=== PATIENT | female | born 1995 | race Caucasian/White ===

== ENCOUNTER 2017-09-29 20:40 | Emergency (ER) | payer OTHER ==
[~2017-09-29] VITALS: Ht 160 cm; Wt 64.9 kg
[~2017-09-29 20:40] MED LIST: ANTOXYBENA BOTHEARS; Flagyl500 MG PO; HYDHCL25 PO; IBUP800 PO; Macrobid 100 M100 MG PO; ONDA4 PO; PRENATA CHEWAB1 EACH PO; PROM25 PO; Percocet 5-3251 EACH PO; Trimox 250 mg250 M1 PO; Verotin-Gr Cap1 EACH PO; Zofran Odt4 MG SL
[2017-09-29] MEDS ORDERED: Norco 5-325 Ta1 EACH PO (21:49)
[2017-09-29] MEDS ORDERED: Crutch1 EACH MISC (21:51)
== END 2017-09-29 22:00 | disposition home or self-care (01) ==
LOC: ER 20:40
DX: S93.402A Sprain of unspecified ligament of left ankle, initial encounter (principal); F17.200 Nicotine dependence, unspecified, uncomplicated; Z91.040 Latex allergy status; W10.9XXA Fall (on) (from) unspecified stairs and steps, initial encounter
CPT/HCPCS: 29515; 73610; 73630; 99283

== ENCOUNTER 2017-11-18 17:46 | Emergency (ER) | payer OTHER ==
[~2017-11-18] VITALS: Ht 162.6 cm; Wt 65.8 kg
[~2017-11-18 17:46] MED LIST changes: +Crutch1 EACH MISC; +Norco 5-325 Ta1 EACH PO
== END 2017-11-18 20:10 | disposition home or self-care (01) ==
LOC: ER 17:46
DX: M25.561 Pain in right knee (principal); Z91.040 Latex allergy status; Z87.891 Personal history of nicotine dependence; W10.9XXA Fall (on) (from) unspecified stairs and steps, initial encounter
CPT/HCPCS: 73564; 99283

== ENCOUNTER 2017-12-25 14:33 | Emergency (ER) | payer OTHER ==
[~2017-12-25] VITALS: Ht 162.6 cm; Wt 63.5 kg
[~2017-12-25 14:33] MED LIST changes: +Advil200 M1
[2017-12-25 15:25] LABS: BASOPHILS ABSOLUTE AUTO 0.04 K/mm3 (0.00-0.23); BASOPHILS PERCENT AUTO 0 % (0-2); EOSINOPHILS ABSOLUTE AUTO 0.02 K/mm3 (0.00-0.68); EOSINOPHILS PERCENT AUTO 0 % (0-6); Hematocrit 39.5 % (33.0-51.0); Hemoglobin 12.9 g/dL (11.5-16.0); IMMATURE GRAN ABSOLUTE AUTO 0.07 K/mm3 (0.00-0.10); IMMATURE GRAN PERCENT AUTO 0 % (0-1); LYMPHOCYTES ABSOLUTE AUTO 1.66 K/mm3 (0.84-5.20); LYMPHOCYTES PERCENT AUTO 9 % (21-46); MONOCYTES ABSOLUTE AUTO 0.71 K/mm3 (0.16-1.47); MONOCYTES PERCENT AUTO 4 % (4-13); Mean Corpuscular HGB 25.2 pg (26.0-34.0); Mean Corpuscular HGB Conc 32.7 g/dL (31.5-36.5); Mean Corpuscular Volume 77 fL (80-100); Mean Platelet Volume 11.8 fL (9.1-12.4); NEUTROPHILS ABSOLUTE AUTO 15.27 K/mm3 (1.96-9.15); NEUTROPHILS PERCENT AUTO 86 % (41-73); Platelet Count 275 K/mm3 (150-400); RDW Coefficient Variation 14.5 % (11.7-14.2); RDW Standard Deviation 39.9 fL (35.1-46.3); Red Blood Cell Count 5.12 M/mm3 (3.80-5.20); White Blood Cell Count 17.77 K/mm3 (4.00-11.30)
[2017-12-25 15:54] LABS: Anion Gap 9 mmol/L (6-16); Blood Urea Nitrogen 11 mg/dL (8-24); Bun/Creatinine Ratio 16.2 (12.0-20.0); CO2, Blood 21 mmol/L (21-32); Calcium, Blood 8.4 mg/dL (8.5-10.1); Chloride, Blood 110 mmol/L (98-108); Creatinine, Blood 0.68 mg/dL (0.40-1.00); Glomerular Filtration Rate >60 (60-); Glucose, Blood 112 mg/dL (70-99); Potassium, Blood 3.9 mmol/L (3.5-5.5); Sodium, Blood 140 mmol/L (136-145)
[2017-12-25 16:24] LABS: Source, Urine Clean Catch
[2017-12-25 16:32] LABS: Bilirubin, Urine Neg (Neg); Blood, Urine Neg (Neg); Glucose Qualitative, Urine Neg (Neg); Ketones, Urine 2+ (Neg); Leukocyte Esterase, Urine Neg (Neg); Nitrite, Urine Neg (Neg); Protein, Urine Neg (Neg); Specific Gravity, Urine 1.015 (1.003-1.022); Urobilinogen, Urine NORM (Normal)
[2017-12-25 16:40] LABS: Appearance, Urine Clear (Clear); Color, Urine Yellow (P-Yellow)
[2017-12-25] MEDS ORDERED: Augmentin 875-1 EACH PO (19:51)
[2017-12-25] MEDS ORDERED: Roxicodone5 MG PO (19:51)
[2017-12-25] MEDS ORDERED: METO10 PO (19:51)
== END 2017-12-25 20:05 | disposition home or self-care (01) ==
LOC: ER 14:33
PROVIDERS: Emergency Medicine
DX: R51 Headache (principal); Z91.040 Latex allergy status; Z79.899 Other long term (current) drug therapy; Z87.891 Personal history of nicotine dependence
CPT/HCPCS: 36415; 70450; 70496; 70498; 80048; 81003; 84703; 85025; 96361; 96374; 96375; 99284-25; J1100; J1200; J1630; J1885; J2405; J2765; J3010; J7030; Q9967

== ENCOUNTER 2017-12-27 06:22 | Day surgery (SDC) | payer OTHER ==
[~2017-12-27] VITALS: Ht 160 cm; Wt 66.7 kg
[~2017-12-27 06:22] MED LIST changes: +Augmentin 875-1 EACH PO; +METO10 PO; +Roxicodone5 MG PO
== END 2017-12-27 12:00 | disposition home or self-care (01) ==
LOC: ORSCSDS 06:22
PROVIDERS: Podiatrist Foot & Ankle Surgery
PROC: 0SGG44Z Fusion of Left Ankle Joint with Internal Fixation Device, Percutaneous Endoscopic Approach (ICD-10-PCS; principal; 2017-12-27 07:30)
PROC: 0SBG4ZZ Excision of Left Ankle Joint, Percutaneous Endoscopic Approach (ICD-10-PCS; principal; 2017-12-27 07:30)
DX: M25.372 Other instability, left ankle (principal); M65.9 Synovitis and tenosynovitis, unspecified; S93.492D Sprain of other ligament of left ankle, subsequent encounter
CPT/HCPCS: C1713; J0171; J0690; J1100; J2250; J2405; J3010; J7120

== ENCOUNTER 2017-12-31 21:25 | Emergency (ER) | payer OTHER ==
[~2017-12-31] VITALS: Ht 160 cm; Wt 63.5 kg
== END 2017-12-31 22:45 | disposition home or self-care (01) ==
LOC: ER 21:25
DX: Z47.89 Encounter for other orthopedic aftercare (principal); M65.9 Synovitis and tenosynovitis, unspecified; Z91.040 Latex allergy status
CPT/HCPCS: 99283

== ENCOUNTER 2018-01-17 00:24 | Emergency (ER) | payer OTHER ==
[~2018-01-17] VITALS: Ht 162.6 cm; Wt 63.5 kg
[2018-01-17] MEDS ORDERED: HYDR1TAB94 PO (00:52)
== END 2018-01-17 01:07 | disposition home or self-care (01) ==
LOC: ER 00:24
DX: Z47.89 Encounter for other orthopedic aftercare (principal); M65.9 Synovitis and tenosynovitis, unspecified; Z91.040 Latex allergy status
CPT/HCPCS: 99283

== ENCOUNTER 2018-03-09 22:43 | Emergency (ER) | payer OTHER ==
[~2018-03-09] VITALS: Ht 160 cm; Wt 63.5 kg
[~2018-03-09 22:43] MED LIST changes: +HYDR1TAB94 PO
[2018-03-09 23:41] LABS: BASOPHILS ABSOLUTE AUTO 0.05 K/mm3 (0.00-0.23); BASOPHILS PERCENT AUTO 0 % (0-2); EOSINOPHILS ABSOLUTE AUTO 0.04 K/mm3 (0.00-0.68); EOSINOPHILS PERCENT AUTO 0 % (0-6); Hematocrit 41.2 % (33.0-51.0); Hemoglobin 13.3 g/dL (11.5-16.0); IMMATURE GRAN ABSOLUTE AUTO 0.04 K/mm3 (0.00-0.10); IMMATURE GRAN PERCENT AUTO 0 % (0-1); LYMPHOCYTES ABSOLUTE AUTO 2.96 K/mm3 (0.84-5.20); LYMPHOCYTES PERCENT AUTO 21 % (21-46); MONOCYTES PERCENT AUTO 7 % (4-13); Mean Corpuscular HGB 25.6 pg (26.0-34.0); Mean Corpuscular HGB Conc 32.3 g/dL (31.5-36.5); Mean Corpuscular Volume 79 fL (80-100); Mean Platelet Volume 12.3 fL (9.1-12.4); NEUTROPHILS ABSOLUTE AUTO 10.14 K/mm3 (1.96-9.15); NEUTROPHILS PERCENT AUTO 71 % (41-73); Platelet Count 210 K/mm3 (150-400); RDW Coefficient Variation 13.2 % (11.7-14.2); RDW Standard Deviation 38.1 fL (35.1-46.3); White Blood Cell Count 14.23 K/mm3 (4.00-11.30)
[2018-03-09 23:55] LABS: Source, Urine Clean Catch
[2018-03-10] LABS: Alanine Aminotransfer (ALT/SGP 18 U/L (12-78); Albumin, Blood 3.9 g/dL (3.4-5.0); Alk Phos 54 U/L (50-136); Anion Gap 8 mmol/L (6-16); Aspartate Aminotrans (AST/SGOT 17 U/L (12-37); Bilirubin, Total 0.5 mg/dL (0.1-1.0); Blood Urea Nitrogen 9 mg/dL (8-24); CO2, Blood 23 mmol/L (21-32); Calcium, Blood 8.6 mg/dL (8.5-10.1); Chloride, Blood 109 mmol/L (98-108); Globulin, Blood 3.8 g/dL (2.2-4.0); Glomerular Filtration Rate >60 (60-); Glucose, Blood 90 mg/dL (70-99); Salicylate <1.7 mg/dL (2.8-20.0); Sodium, Blood 140 mmol/L (136-145); Total Protein, Blood 7.7 g/dL (6.4-8.2)
[2018-03-10 00:02] LABS: Bilirubin, Urine Neg (Neg); Blood, Urine Neg (Neg); Glucose Qualitative, Urine Neg (Neg); Ketones, Urine 1+ (Neg); Leukocyte Esterase, Urine Neg (Neg); Nitrite, Urine Neg (Neg); Protein, Urine Neg (Neg); Specific Gravity, Urine 1.015 (1.003-1.022); Urobilinogen, Urine NORM (Normal); pH, Urine 6.5 (5.0-8.0)
[2018-03-10 00:06] LABS: Acetaminophen, Random <2.0 ug/mL (10.0-30.0)
[2018-03-10 00:06] LABS: Appearance, Urine Clear (Clear); Color, Urine Yellow (P-Yellow)
[2018-03-10 00:15] LABS: U Amphetamine Screen Not Detected; U Barbituate Screen Not Detected; U Benzodiazapine Screen Not Detected; U Buprenorphine Screen Not Detected; U Cannabinoids Screen Not Detected; U Cocaine Screen Not Detected; U Methadone Screen Not Detected; U Methamphetamine Screen Not Detected; U Opiates Screen Not Detected; U Oxycodone Screen Not Detected; U Phencyclidine Screen Not Detected; U Propoxyphene Screen Not Detected
== END 2018-03-10 02:03 | disposition home or self-care (01) ==
LOC: ER 22:43
PROVIDERS: Emergency Medicine
DX: R51 Headache (principal); Z91.040 Latex allergy status
CPT/HCPCS: 80053; 81003; 81025; 83735; 84443; 85025; 96361; 96374; 96375; 99284-25; G0480; J1100; J1200; J1885; J2060; J2765; J7030

== ENCOUNTER 2018-03-10 23:21 | Emergency (ER) | payer OTHER ==
[~2018-03-10] VITALS: Ht 160 cm; Wt 59.0 kg
[2018-03-10 23:45] LABS: Calcium, Ionized (POC) 1.11 mmol/L (1.10-1.46); Chloride (POC) 109 mmol/L (98-108); Creatinine (POC) 0.8 mg/dL (0.6-1.0); Glucose (ISTAT POC) 106 mg/dL (70-99); Hemoglobin (POC) 12.6 g/dL (12.0-16.0); Potassium (POC) 3.3 mmol/L (3.5-5.5); Sodium (POC) 143 mmol/L (135-148); Total CO2 (POC) 20 mmol/L (21-32)
== END 2018-03-11 01:01 | disposition home or self-care (01) ==
LOC: ER 23:21
PROVIDERS: Emergency Medicine
DX: R29.90 Unspecified symptoms and signs involving the nervous system (principal); Z91.040 Latex allergy status
CPT/HCPCS: 80047; 85014; 99284

== ENCOUNTER 2018-08-22 14:44 | Emergency (ER) | payer OTHER ==
[~2018-08-22] VITALS: Ht 160 cm; Wt 63.5 kg
[~2018-08-22 14:44] MED LIST changes: +CEPH500 PO; +IBUP600 PO; +Zofran Odt4 MG PO
[2018-08-22 17:17] LABS: Source, Urine Clean Catch
[2018-08-22 17:18] LABS: BASOPHILS ABSOLUTE AUTO 0.03 K/mm3 (0.00-0.23); BASOPHILS PERCENT AUTO 0 % (0-2); EOSINOPHILS ABSOLUTE AUTO 0.02 K/mm3 (0.00-0.68); EOSINOPHILS PERCENT AUTO 0 % (0-6); Hematocrit 39.6 % (33.0-51.0); Hemoglobin 12.7 g/dL (11.5-16.0); IMMATURE GRAN ABSOLUTE AUTO 0.03 K/mm3 (0.00-0.10); IMMATURE GRAN PERCENT AUTO 0 % (0-1); LYMPHOCYTES ABSOLUTE AUTO 2.05 K/mm3 (0.84-5.20); LYMPHOCYTES PERCENT AUTO 19 % (21-46); MONOCYTES ABSOLUTE AUTO 0.79 K/mm3 (0.16-1.47); MONOCYTES PERCENT AUTO 7 % (4-13); Mean Corpuscular HGB 25.7 pg (26.0-34.0); Mean Corpuscular HGB Conc 32.1 g/dL (31.5-36.5); Mean Corpuscular Volume 80 fL (80-100); Mean Platelet Volume 12.1 fL (9.1-12.4); NEUTROPHILS ABSOLUTE AUTO 7.94 K/mm3 (1.96-9.15); NEUTROPHILS PERCENT AUTO 73 % (41-73); Platelet Count 226 K/mm3 (150-400); RDW Coefficient Variation 13.9 % (11.7-14.2); RDW Standard Deviation 40.8 fL (35.1-46.3); Red Blood Cell Count 4.95 M/mm3 (3.80-5.20); White Blood Cell Count 10.86 K/mm3 (4.00-11.30)
[2018-08-22 17:30] LABS: Appearance, Urine Hazy (Clear); Bilirubin, Urine Neg (Neg); Blood, Urine 5+ (Neg); Color, Urine Yellow (P-Yellow); Glucose Qualitative, Urine Neg (Neg); Ketones, Urine 1+ (Neg); Leukocyte Esterase, Urine Neg (Neg); Nitrite, Urine Neg (Neg); Protein, Urine Neg (Neg); Specific Gravity, Urine 1.015 (1.003-1.022); Urobilinogen, Urine NORM (Normal)
[2018-08-22 17:36] LABS: Alanine Aminotransfer (ALT/SGP 15 U/L (12-78); Albumin/Globulin Ratio 1.2 (0.8-1.8); Alk Phos 45 U/L (50-136); Anion Gap 7 mmol/L (6-16); Aspartate Aminotrans (AST/SGOT 11 U/L (12-37); Beta HCG, Quantitative, Serum 177 mIU/mL (0-3); Bilirubin, Total 0.5 mg/dL (0.1-1.0); Blood Urea Nitrogen 10 mg/dL (8-24); Bun/Creatinine Ratio 12.5 (12.0-20.0); CO2, Blood 24 mmol/L (21-32); Calcium, Blood 8.6 mg/dL (8.5-10.1); Chloride, Blood 108 mmol/L (98-108); Globulin, Blood 3.4 g/dL (2.2-4.0); Glomerular Filtration Rate >60 (60-); Glucose, Blood 90 mg/dL (70-99); Potassium, Blood 3.8 mmol/L (3.5-5.5); Sodium, Blood 139 mmol/L (136-145); Total Protein, Blood 7.4 g/dL (6.4-8.2)
[2018-08-22 17:39] LABS: Squamous Epithelial Cells Many /hpf (Few)
[2018-08-22 17:40] LABS: Bacteria Few /hpf; Red Blood Cells, Urine Not Seen /hpf (0-2); White Blood Cells, Urine 0-2 /hpf (0-5)
== END 2018-08-22 20:48 | disposition home or self-care (01) ==
LOC: ER 14:44
PROVIDERS: Physician Assistant
DX: O20.9 Hemorrhage in early pregnancy, unspecified (principal); Z3A.01 Less than 8 weeks gestation of pregnancy; Z91.040 Latex allergy status
CPT/HCPCS: 36415; 76801; 76817; 80053; 81001; 84702; 85025; 99284-25

== ENCOUNTER → 2018-10-16 | Outpatient (CLI) | payer OTHER | END | disposition home or self-care (01) | LOC: LAB SHORT 16:27 → LAB EV 16:27 | DX: N12 Tubulo-interstitial nephritis, not specified as acute or chronic (principal) | CPT/HCPCS: 87077; 87086; 87186 ==

== ENCOUNTER 2018-11-05 09:22 | Day surgery (SDC) | payer OTHER ==
[2018-11-04 18:04] LABS: Hemoglobin 13.2 g/dL (11.5-16.0); Mean Corpuscular HGB 26.2 pg (26.0-34.0); Mean Corpuscular HGB Conc 32.2 g/dL (31.5-36.5); Mean Corpuscular Volume 81 fL (80-100); Mean Platelet Volume 12.2 fL (9.1-12.4); Platelet Count 237 K/mm3 (150-400); RDW Coefficient Variation 13.7 % (11.7-14.2); RDW Standard Deviation 40.5 fL (35.1-46.3); Red Blood Cell Count 5.04 M/mm3 (3.80-5.20); White Blood Cell Count 10.46 K/mm3 (4.00-11.30)
[~2018-11-05] VITALS: Ht 160 cm; Wt 62.9 kg
--- NOTE | 2018-11-05 10:00 | NUR ---
Ambulatory in Day Surgery. History, Chart, Medications and Allergies reviewed before start of procedure. Lungs clear T/O to Auscultation. Patient confirms NPO status and agrees with scheduled surgery. Pre-Op teaching done. Pt verbalizes understanding. Patient States Post-Procedure ride home has been arranged. Mother, Libby, at bedside as well as her two children.
--- NOTE | 2018-11-05 13:48 | NUR ---
Patient up to Ambulate independently. Gait steady. Discharge instructions reviewed with patient. Patient verbalizes understanding. Copy given to patient to take home. Patient States Post-Procedure ride home has been arranged. Discharged via wheelchair to private car for ride home. Mother and children at bedside. Pt up to bathroom prior to discharge. Scant drainage on palak-pad, approx 15 cc's on chux. Fresh palak-pad given, displayed only smear at time of discharge. Pt awake, alert, and oriented at time of discharge. She had trouble with nausea and did not want to take any pain medication until her stomach settled. She is going to try to eat something on her way home and take an ibuprofen.
== END 2018-11-05 23:04 | disposition home or self-care (01) ==
LOC: ORSCMMR 09:22 → ORD 10:30 → ORSCMMR 23:04
PROVIDERS: Obstetrics & Gynecology
PROC: 10A07Z6 Abortion of Products of Conception, Vacuum, Via Natural or Artificial Opening (ICD-10-PCS; principal; 2018-11-05 10:30)
DX: O03.39 Incomplete spontaneous abortion with other complications (principal)
CPT/HCPCS: 36415; 84702; 85027; 86850; 86900; 86901; 88305; J0690; J1885; J2210; J2250; J2405; J2704; J3010; J7120

== ENCOUNTER 2019-09-28 13:59 | Emergency (ER) | payer OTHER ==
[~2019-09-28] VITALS: Ht 160 cm; Wt 61.2 kg
[2019-09-28] MEDS ORDERED: Robaxin-750750 MG PO (16:51)
== END 2019-09-28 17:16 | disposition home or self-care (01) ==
LOC: ER 13:59
DX: S79.911A Unspecified injury of right hip, initial encounter (principal); S99.911A Unspecified injury of right ankle, initial encounter; S49.91XA Unspecified injury of right shoulder and upper arm, initial encounter; Z91.040 Latex allergy status; W01.0XXA Fall on same level from slipping, tripping and stumbling without subsequent striking against object, initial encounter
CPT/HCPCS: 73080; 73110; 73502; 73610; 99283-25

== ENCOUNTER 2020-03-19 19:38 | Emergency (ER) | payer OTHER ==
[~2020-03-19] VITALS: Ht 160 cm; Wt 65.8 kg
[~2020-03-19 19:38] MED LIST changes: +Robaxin-750750 MG PO
[2020-03-19 20:22] LABS: BASOPHILS ABSOLUTE AUTO 0.04 K/mm3 (0.00-0.23); BASOPHILS PERCENT AUTO 0 % (0-2); EOSINOPHILS ABSOLUTE AUTO 0.07 K/mm3 (0.00-0.68); EOSINOPHILS PERCENT AUTO 1 % (0-6); Hematocrit 43.7 % (33.0-51.0); Hemoglobin 13.9 g/dL (11.5-16.0); IMMATURE GRAN ABSOLUTE AUTO 0.01 K/mm3 (0.00-0.10); IMMATURE GRAN PERCENT AUTO 0 % (0-1); LYMPHOCYTES ABSOLUTE AUTO 2.22 K/mm3 (0.84-5.20); LYMPHOCYTES PERCENT AUTO 25 % (21-46); MONOCYTES ABSOLUTE AUTO 0.69 K/mm3 (0.16-1.47); MONOCYTES PERCENT AUTO 8 % (4-13); Mean Corpuscular HGB 25.4 pg (26.0-34.0); Mean Corpuscular HGB Conc 31.8 g/dL (31.5-36.5); Mean Corpuscular Volume 80 fL (80-100); Mean Platelet Volume 12.5 fL (9.1-12.4); NEUTROPHILS ABSOLUTE AUTO 5.92 K/mm3 (1.96-9.15); NEUTROPHILS PERCENT AUTO 66 % (41-73); Platelet Count 234 K/mm3 (150-400); RDW Coefficient Variation 13.8 % (11.7-14.2); RDW Standard Deviation 40.3 fL (35.1-46.3); Red Blood Cell Count 5.47 M/mm3 (3.80-5.20); White Blood Cell Count 8.95 K/mm3 (4.00-11.30)
[2020-03-19 20:45] LABS: Alanine Aminotransfer (ALT/SGP 15 U/L (12-78); Albumin, Blood 3.7 g/dL (3.4-5.0); Albumin/Globulin Ratio 0.9 (0.8-1.8); Alk Phos 50 U/L (50-136); Anion Gap 7 mmol/L (6-16); Aspartate Aminotrans (AST/SGOT 24 U/L (12-37); Bilirubin, Total 0.3 mg/dL (0.1-1.0); Blood Urea Nitrogen 10 mg/dL (8-24); Bun/Creatinine Ratio 12.1 (12.0-20.0); CO2, Blood 24 mmol/L (21-32); Calcium, Blood 8.5 mg/dL (8.5-10.1); Chloride, Blood 110 mmol/L (98-108); Creatinine, Blood 0.83 mg/dL (0.40-1.00); Globulin, Blood 3.9 g/dL (2.2-4.0); Glomerular Filtration Rate >60 (60-); Glucose, Blood 110 mg/dL (70-99); Potassium, Blood 4.3 mmol/L (3.5-5.5); Sodium, Blood 141 mmol/L (136-145); Total Protein, Blood 7.6 g/dL (6.4-8.2)
[2020-03-19 20:57] LABS: Beta HCG, Quantitative, Serum 1166 mIU/mL (0-3)
== END 2020-03-20 00:55 | disposition home or self-care (01) ==
LOC: ER 19:38
PROVIDERS: Physician Assistant
DX: O20.0 Threatened abortion (principal); F32.9 Major depressive disorder, single episode, unspecified; F41.9 Anxiety disorder, unspecified; Z3A.01 Less than 8 weeks gestation of pregnancy; Z88.6 Allergy status to analgesic agent; Z91.040 Latex allergy status
CPT/HCPCS: 36415; 76801; 76817; 80053; 84702; 85025; 86900; 86901; 96372; 99284-25; J2791; J7030

== ENCOUNTER 2020-08-01 13:40 | Emergency (ER) | payer OTHER ==
[~2020-08-01] VITALS: Ht 160 cm; Wt 65.8 kg
[2020-08-01 14:13] LABS: BASOPHILS ABSOLUTE AUTO 0.04 K/mm3 (0.00-0.23); BASOPHILS PERCENT AUTO 0 % (0-2); EOSINOPHILS PERCENT AUTO 1 % (0-6); Hematocrit 42.6 % (33.0-51.0); Hemoglobin 14.2 g/dL (11.5-16.0); IMMATURE GRAN ABSOLUTE AUTO 0.03 K/mm3 (0.00-0.10); IMMATURE GRAN PERCENT AUTO 0 % (0-1); LYMPHOCYTES ABSOLUTE AUTO 2.33 K/mm3 (0.84-5.20); LYMPHOCYTES PERCENT AUTO 20 % (21-46); MONOCYTES ABSOLUTE AUTO 0.64 K/mm3 (0.16-1.47); MONOCYTES PERCENT AUTO 5 % (4-13); Mean Corpuscular HGB 25.4 pg (26.0-34.0); Mean Corpuscular HGB Conc 33.3 g/dL (31.5-36.5); Mean Corpuscular Volume 76 fL (80-100); Mean Platelet Volume 11.9 fL (9.1-12.4); NEUTROPHILS ABSOLUTE AUTO 8.81 K/mm3 (1.96-9.15); NEUTROPHILS PERCENT AUTO 74 % (41-73); Platelet Count 188 K/mm3 (150-400); RDW Coefficient Variation 14.4 % (11.7-14.2); RDW Standard Deviation 39.2 fL (35.1-46.3); Red Blood Cell Count 5.59 M/mm3 (3.80-5.20); White Blood Cell Count 11.95 K/mm3 (4.00-11.30)
[2020-08-01 14:41] LABS: Alanine Aminotransfer (ALT/SGP 20 U/L (12-78); Albumin, Blood 3.8 g/dL (3.4-5.0); Albumin/Globulin Ratio 0.9 (0.8-1.8); Alk Phos 48 U/L (50-136); Anion Gap 11 mmol/L (6-16); Aspartate Aminotrans (AST/SGOT 16 U/L (12-37); Bilirubin, Total 0.2 mg/dL (0.1-1.0); Blood Urea Nitrogen 12 mg/dL (8-24); Bun/Creatinine Ratio 12.4 (12.0-20.0); CO2, Blood 21 mmol/L (21-32); Calcium, Blood 9.7 mg/dL (8.5-10.1); Chloride, Blood 107 mmol/L (98-108); Creatinine, Blood 0.97 mg/dL (0.40-1.00); Globulin, Blood 4.3 g/dL (2.2-4.0); Glomerular Filtration Rate >60 (60-); Glucose, Blood 117 mg/dL (70-99); Potassium, Blood 3.8 mmol/L (3.5-5.5); Sodium, Blood 139 mmol/L (136-145); Total Protein, Blood 8.1 g/dL (6.4-8.2)
[2020-08-01] MEDS ORDERED: EPIPEN 2-P0.3 MG/0.1 IM (17:30)
== END 2020-08-01 18:00 | disposition home or self-care (01) ==
LOC: ER 13:40
PROVIDERS: Physician Assistant
DX: T78.09XA Anaphylactic reaction due to other food products, initial encounter (principal)
CPT/HCPCS: 36415; 71046; 80053; 85025; 93005; 93010; 96372-59; 96374; 96375; 99285-25; A9270; J0171; J1200; J2930

== ENCOUNTER 2020-08-27 15:45 | Emergency (ER) | payer OTHER ==
[~2020-08-27] VITALS: Ht 160 cm; Wt 65.8 kg
[~2020-08-27 15:45] MED LIST changes: +EPIPEN 2-P0.3 MG/0.1 IM
[2020-08-27 16:50] LABS: BASOPHILS ABSOLUTE AUTO 0.04 K/mm3 (0.00-0.23); BASOPHILS PERCENT AUTO 0 % (0-2); EOSINOPHILS ABSOLUTE AUTO 0.08 K/mm3 (0.00-0.68); EOSINOPHILS PERCENT AUTO 1 % (0-6); Hematocrit 40.8 % (33.0-51.0); Hemoglobin 13.1 g/dL (11.5-16.0); IMMATURE GRAN ABSOLUTE AUTO 0.03 K/mm3 (0.00-0.10); IMMATURE GRAN PERCENT AUTO 0 % (0-1); LYMPHOCYTES ABSOLUTE AUTO 1.92 K/mm3 (0.84-5.20); LYMPHOCYTES PERCENT AUTO 20 % (21-46); MONOCYTES ABSOLUTE AUTO 0.96 K/mm3 (0.16-1.47); MONOCYTES PERCENT AUTO 10 % (4-13); Mean Corpuscular HGB 25.6 pg (26.0-34.0); Mean Corpuscular HGB Conc 32.1 g/dL (31.5-36.5); Mean Corpuscular Volume 80 fL (80-100); Mean Platelet Volume 12.2 fL (9.1-12.4); NEUTROPHILS PERCENT AUTO 69 % (41-73); Platelet Count 181 K/mm3 (150-400); RDW Coefficient Variation 13.9 % (11.7-14.2); RDW Standard Deviation 40.4 fL (35.1-46.3); Red Blood Cell Count 5.12 M/mm3 (3.80-5.20); White Blood Cell Count 9.83 K/mm3 (4.00-11.30)
[2020-08-27 17:12] LABS: Alanine Aminotransfer (ALT/SGP 16 U/L (12-78); Albumin, Blood 3.5 g/dL (3.4-5.0); Albumin/Globulin Ratio 0.9 (0.8-1.8); Alk Phos 51 U/L (50-136); Anion Gap 8 mmol/L (6-16); Aspartate Aminotrans (AST/SGOT 10 U/L (12-37); Bilirubin, Total 0.2 mg/dL (0.1-1.0); Blood Urea Nitrogen 9 mg/dL (8-24); Bun/Creatinine Ratio 11.3 (12.0-20.0); CO2, Blood 22 mmol/L (21-32); Calcium, Blood 8.1 mg/dL (8.5-10.1); Chloride, Blood 111 mmol/L (98-108); Globulin, Blood 3.7 g/dL (2.2-4.0); Glomerular Filtration Rate >60 (60-); Glucose, Blood 82 mg/dL (70-99); Potassium, Blood 3.5 mmol/L (3.5-5.5); Sodium, Blood 141 mmol/L (136-145); Total Protein, Blood 7.2 g/dL (6.4-8.2)
[2020-08-27 17:31] LABS: Source, Urine Clean Catch
[2020-08-27 17:39] LABS: Appearance, Urine Clear (Clear); Bilirubin, Urine Neg (Neg); Blood, Urine Neg (Neg); Color, Urine Yellow (P-Yellow); Glucose Qualitative, Urine Neg (Neg); Ketones, Urine 1+ (Neg); Leukocyte Esterase, Urine Neg (Neg); Nitrite, Urine Neg (Neg); Protein, Urine Neg (Neg); Urobilinogen, Urine NORM (Normal)
[2020-08-27] MEDS ORDERED: ONDA4ODT MM (19:23)
== END 2020-08-27 19:24 | disposition home or self-care (01) ==
LOC: ER 15:45
PROVIDERS: Physician Assistant
DX: N83.201 Unspecified ovarian cyst, right side (principal); Z88.6 Allergy status to analgesic agent; Z91.040 Latex allergy status
CPT/HCPCS: 36415; 74177; 76830; 76856; 80053; 81003; 81025; 85025; 96374; 96375; 96376; 99284-25; J2270; J2405; J7030; Q9967

== ENCOUNTER 2022-05-04 12:40 | Emergency (ER) | payer OTHER ==
[~2022-05-04] VITALS: Ht 160 cm; Wt 65.8 kg
[~2022-05-04 12:40] MED LIST changes: +ONDA4ODT MM
== END 2022-05-04 17:34 | disposition home or self-care (01) ==
LOC: ER 12:40
DX: G43.509 Persistent migraine aura without cerebral infarction, not intractable, without status migrainosus (principal); Z88.8 Allergy status to other drugs, medicaments and biological substances; Z91.040 Latex allergy status
CPT/HCPCS: 70450; A9270; J1100; J1200; J1790; J2765; J7030

== ENCOUNTER 2022-05-05 20:58 | Emergency (ER) | payer OTHER | END 2022-05-05 23:35 | disposition home or self-care (01) | DX: M62.838 Other muscle spasm (principal); R25.1 Tremor, unspecified; S93.409A Sprain of unspecified ligament of unspecified ankle, initial encounter; X58.XXXA Exposure to other specified factors, initial encounter; Z88.8 Allergy status to other drugs, medicaments and biological substances; Z91.040 Latex allergy status ==

== ENCOUNTER 2023-02-21 19:11 | Emergency (ER) | payer OTHER ==
[~2023-02-21] VITALS: Ht 160 cm; Wt 72.6 kg
[2023-02-21 20:10] VITALS: BP 149/92
[2023-02-21 20:38] LABS: Source, Urine Clean Catch
[2023-02-21 20:42] LABS: Appearance, Urine Hazy (Clear); Bilirubin, Urine Neg (Neg); Blood, Urine Neg (Neg); Color, Urine Yellow (P-Yellow); Glucose Qualitative, Urine Neg (Neg); Ketones, Urine Neg (Neg); Leukocyte Esterase, Urine 3+ (Neg); Nitrite, Urine Neg (Neg); Protein, Urine Neg (Neg); Urobilinogen, Urine NORM (Normal); pH, Urine 6.5 (5.0-8.0)
[2023-02-21 20:46] LABS: BASOPHILS ABSOLUTE AUTO 0.03 K/mm3 (0.00-0.23); BASOPHILS PERCENT AUTO 0 % (0-2); EOSINOPHILS ABSOLUTE AUTO 0.08 K/mm3 (0.00-0.68); EOSINOPHILS PERCENT AUTO 1 % (0-6); Hematocrit 38.1 % (33.0-51.0); Hemoglobin 12.7 g/dL (11.5-16.0); IMMATURE GRAN ABSOLUTE AUTO 0.04 K/mm3 (0.00-0.10); IMMATURE GRAN PERCENT AUTO 0 % (0-1); LYMPHOCYTES ABSOLUTE AUTO 2.15 K/mm3 (0.84-5.20); LYMPHOCYTES PERCENT AUTO 16 % (21-46); MONOCYTES PERCENT AUTO 7 % (4-13); Mean Corpuscular HGB 26.4 pg (26.0-34.0); Mean Corpuscular HGB Conc 33.3 g/dL (31.5-36.5); Mean Corpuscular Volume 79 fL (80-100); Mean Platelet Volume 11.5 fL (9.1-12.4); NEUTROPHILS ABSOLUTE AUTO 10.38 K/mm3 (1.96-9.15); NEUTROPHILS PERCENT AUTO 77 % (41-73); Platelet Count 214 K/mm3 (150-400); RDW Coefficient Variation 14.1 % (11.7-14.2); RDW Standard Deviation 40.6 fL (35.1-46.3); Red Blood Cell Count 4.81 M/mm3 (3.80-5.20); White Blood Cell Count 13.58 K/mm3 (4.00-11.30)
[2023-02-21 20:56] LABS: Bacteria Mod /hpf; Red Blood Cells, Urine 0-2 /hpf (0-2); Squamous Epithelial Cells Mod /hpf (Few)
[2023-02-21 21:05] LABS: Albumin, Blood 2.8 g/dL (3.4-5.0); Albumin/Globulin Ratio 0.6 (0.8-1.8); Bilirubin, Total 0.1 mg/dL (0.1-1.0); Bun/Creatinine Ratio 11.5 (12.0-20.0); Calcium, Blood 8.4 mg/dL (8.5-10.1); Creatinine, Blood 0.7 mg/dL (0.40-1.00); Globulin, Blood 4.7 g/dL (2.2-4.0); Potassium, Blood 3.6 mmol/L (3.5-5.5); Total Protein, Blood 7.5 g/dL (6.4-8.2)
== END 2023-02-21 23:04 | disposition home or self-care (01) ==
LOC: ER 19:11
PROVIDERS: Physician Assistant
DX: O99.891 Other specified diseases and conditions complicating pregnancy (principal); R10.32 Left lower quadrant pain; N94.89 Other specified conditions associated with female genital organs and menstrual cycle; Z88.6 Allergy status to analgesic agent; Z91.040 Latex allergy status; Z3A.19 19 weeks gestation of pregnancy
CPT/HCPCS: 76815; 76817; 80053; 81001; 85025; 87086; 99284-25

== ENCOUNTER 2023-03-16 08:00 | Inpatient (IN) | payer OTHER ==
[~2023-03-16] VITALS: Ht 160 cm; Wt 74.0 kg
[2023-03-16 09:25] VITALS: BP 130/65
[2023-03-16 11:55] VITALS: BP 109/57
[2023-03-16 13:30] LABS: BASOPHILS ABSOLUTE AUTO 0.04 K/mm3 (0.00-0.23); BASOPHILS PERCENT AUTO 0 % (0-2); EOSINOPHILS PERCENT AUTO 0 % (0-6); Hematocrit 36.3 % (33.0-51.0); Hemoglobin 12.3 g/dL (11.5-16.0); IMMATURE GRAN ABSOLUTE AUTO 0.12 K/mm3 (0.00-0.10); IMMATURE GRAN PERCENT AUTO 1 % (0-1); LYMPHOCYTES PERCENT AUTO 3 % (21-46); MONOCYTES ABSOLUTE AUTO 0.38 K/mm3 (0.16-1.47); MONOCYTES PERCENT AUTO 2 % (4-13); Mean Corpuscular HGB 26.7 pg (26.0-34.0); Mean Corpuscular HGB Conc 33.9 g/dL (31.5-36.5); Mean Corpuscular Volume 79 fL (80-100); Mean Platelet Volume 11.6 fL (9.1-12.4); NEUTROPHILS ABSOLUTE AUTO 23.02 K/mm3 (1.96-9.15); NEUTROPHILS PERCENT AUTO 95 % (41-73); Platelet Count 199 K/mm3 (150-400); RDW Coefficient Variation 14.1 % (11.7-14.2); RDW Standard Deviation 40.7 fL (35.1-46.3); White Blood Cell Count 24.26 K/mm3 (4.00-11.30)
[2023-03-16 13:47] LABS: Albumin, Blood 2.6 g/dL (3.4-5.0); Albumin/Globulin Ratio 0.6 (0.8-1.8); Bilirubin, Total 0.2 mg/dL (0.1-1.0); Calcium, Blood 8.1 mg/dL (8.5-10.1); Creatinine, Blood 0.55 mg/dL (0.40-1.00); Globulin, Blood 4.4 g/dL (2.2-4.0); Potassium, Blood 3.6 mmol/L (3.5-5.5)
[2023-03-16 14:45] VITALS: BP 108/57
--- NOTE | 2023-03-16 14:45 | NUR ---
DENIES UC AT THIS TIME NO FLUID DRAINING OR BLEEDING AT THIS TIME
[2023-03-16 15:17] LABS: Source, Urine Foley catheter
[2023-03-16 15:47] LABS: Appearance, Urine Clear (Clear); Bilirubin, Urine Neg (Neg); Blood, Urine Neg (Neg); Color, Urine Yellow (P-Yellow); Glucose Qualitative, Urine 2+ (Neg); Ketones, Urine Neg (Neg); Leukocyte Esterase, Urine Neg (Neg); Nitrite, Urine Neg (Neg); Protein, Urine Neg (Neg); Specific Gravity, Urine 1.015 (1.003-1.022); Urobilinogen, Urine NORM (Normal)
--- NOTE | 2023-03-16 17:31 | NUR ---
small amount of old brown blood on pad when patient repositioned in bed, denies feeling contractions
[2023-03-16 19:22] VITALS: BP 113/56
[2023-03-16 23:00] VITALS: BP 111/58
[2023-03-17] VITALS (8 sets, daily range): BP systolic 92–114; BP diastolic 46–59
[2023-03-17 05:31] LABS: BASOPHILS ABSOLUTE AUTO 0.04 K/mm3 (0.00-0.23); BASOPHILS PERCENT AUTO 0 % (0-2); EOSINOPHILS PERCENT AUTO 0 % (0-6); Hematocrit 32.9 % (33.0-51.0); Hemoglobin 10.9 g/dL (11.5-16.0); IMMATURE GRAN ABSOLUTE AUTO 0.23 K/mm3 (0.00-0.10); IMMATURE GRAN PERCENT AUTO 1 % (0-1); LYMPHOCYTES ABSOLUTE AUTO 1.22 K/mm3 (0.84-5.20); LYMPHOCYTES PERCENT AUTO 5 % (21-46); MONOCYTES ABSOLUTE AUTO 1.43 K/mm3 (0.16-1.47); MONOCYTES PERCENT AUTO 5 % (4-13); Mean Corpuscular HGB 26.4 pg (26.0-34.0); Mean Corpuscular HGB Conc 33.1 g/dL (31.5-36.5); Mean Corpuscular Volume 80 fL (80-100); Mean Platelet Volume 12.1 fL (9.1-12.4); NEUTROPHILS ABSOLUTE AUTO 23.55 K/mm3 (1.96-9.15); NEUTROPHILS PERCENT AUTO 89 % (41-73); Platelet Count 192 K/mm3 (150-400); RDW Coefficient Variation 14.2 % (11.7-14.2); RDW Standard Deviation 41.1 fL (35.1-46.3); Red Blood Cell Count 4.13 M/mm3 (3.80-5.20); White Blood Cell Count 26.47 K/mm3 (4.00-11.30)
--- NOTE | 2023-03-17 12:51 | NUR ---
pad weight 2gm, old dark dark brick brown color on pad, palak care done, iv fluids moved to pump
[2023-03-18] VITALS (8 sets, daily range): BP systolic 97–115; BP diastolic 48–58
[2023-03-18 06:03] LABS: BASOPHILS ABSOLUTE AUTO 0.02 K/mm3 (0.00-0.23); BASOPHILS PERCENT AUTO 0 % (0-2); EOSINOPHILS PERCENT AUTO 0 % (0-6); Hematocrit 29.4 % (33.0-51.0); Hemoglobin 9.9 g/dL (11.5-16.0); IMMATURE GRAN ABSOLUTE AUTO 0.12 K/mm3 (0.00-0.10); IMMATURE GRAN PERCENT AUTO 1 % (0-1); LYMPHOCYTES ABSOLUTE AUTO 1.15 K/mm3 (0.84-5.20); LYMPHOCYTES PERCENT AUTO 5 % (21-46); MONOCYTES ABSOLUTE AUTO 1.02 K/mm3 (0.16-1.47); MONOCYTES PERCENT AUTO 4 % (4-13); Mean Corpuscular HGB 26.8 pg (26.0-34.0); Mean Corpuscular HGB Conc 33.7 g/dL (31.5-36.5); Mean Corpuscular Volume 80 fL (80-100); Mean Platelet Volume 11.9 fL (9.1-12.4); NEUTROPHILS PERCENT AUTO 90 % (41-73); Platelet Count 173 K/mm3 (150-400); RDW Coefficient Variation 14.4 % (11.7-14.2); Red Blood Cell Count 3.69 M/mm3 (3.80-5.20); White Blood Cell Count 23.11 K/mm3 (4.00-11.30)
[2023-03-18 06:25] LABS: BAND PERCENT MAN 1 % (0-8); BASOPHILS PERCENT MAN 0 % (0-2); EOSINOPHILS PERCENT MAN 0 % (0-6); LYMPHOCYTES ABSOLUTE MAN 1.15 K/mm3 (0.84-5.20); LYMPHOCYTES PERCENT MAN 5 % (21-46); MONOCYTES ABSOLUTE MAN 0.46 K/mm3 (0.16-1.47); MONOCYTES PERCENT MAN 2 % (4-13); NEUTROPHILS ABSOLUTE MAN 21.49 K/mm3 (1.96-9.15); SEG NEUTROPHILS PERCENT MAN 92 % (41-73); TOTAL CELLS COUNTED 100
--- NOTE | 2023-03-18 16:26 | NUR ---
Upon receiving a referral for spiritual care, I visited the patient. She and spouse, Salo talk about the complications with the labor and what they are hoping for interm of the timing of delivery and the acceptance at [facility]. They share about their Hindu wilda and the many people who are praying and how there has been much to celebrate so far. I provide therapeutic listening, and prayer. Although the gravity of the situation has not changed they voice that they are encouraged in the midst of it. I will continue to remain available to patient and family.
--- NOTE | 2023-03-18 22:12 | NUR ---
SPOKE WITH LLOYD LARSON REGARDING D/C THE FLAGYL SPECIFICALLY. SHE WANTS THE FLAGYL D/C'D.
[2023-03-19] VITALS (37 sets, daily range): BP systolic 98–135; BP diastolic 47–73
[2023-03-19 06:44] LABS: BASOPHILS ABSOLUTE AUTO 0.04 K/mm3 (0.00-0.23); BASOPHILS PERCENT AUTO 0 % (0-2); EOSINOPHILS ABSOLUTE AUTO 0.01 K/mm3 (0.00-0.68); EOSINOPHILS PERCENT AUTO 0 % (0-6); Hematocrit 30.4 % (33.0-51.0); Hemoglobin 10.1 g/dL (11.5-16.0); IMMATURE GRAN ABSOLUTE AUTO 0.12 K/mm3 (0.00-0.10); IMMATURE GRAN PERCENT AUTO 1 % (0-1); LYMPHOCYTES ABSOLUTE AUTO 1.66 K/mm3 (0.84-5.20); LYMPHOCYTES PERCENT AUTO 9 % (21-46); MONOCYTES ABSOLUTE AUTO 1.21 K/mm3 (0.16-1.47); MONOCYTES PERCENT AUTO 6 % (4-13); Mean Corpuscular HGB 26.4 pg (26.0-34.0); Mean Corpuscular HGB Conc 33.2 g/dL (31.5-36.5); Mean Corpuscular Volume 79 fL (80-100); NEUTROPHILS ABSOLUTE AUTO 15.93 K/mm3 (1.96-9.15); NEUTROPHILS PERCENT AUTO 84 % (41-73); RDW Coefficient Variation 14.6 % (11.7-14.2); RDW Standard Deviation 42.2 fL (35.1-46.3); Red Blood Cell Count 3.83 M/mm3 (3.80-5.20); White Blood Cell Count 18.97 K/mm3 (4.00-11.30)
[2023-03-19 07:06] LABS: Platelet Count 149 K/mm3 (150-400)
[2023-03-19 16:14] LABS: BASOPHILS ABSOLUTE AUTO 0.02 K/mm3 (0.00-0.23); BASOPHILS PERCENT AUTO 0 % (0-2); EOSINOPHILS PERCENT AUTO 0 % (0-6); Hematocrit 34.1 % (33.0-51.0); Hemoglobin 11.4 g/dL (11.5-16.0); IMMATURE GRAN ABSOLUTE AUTO 0.11 K/mm3 (0.00-0.10); IMMATURE GRAN PERCENT AUTO 1 % (0-1); LYMPHOCYTES ABSOLUTE AUTO 1.18 K/mm3 (0.84-5.20); LYMPHOCYTES PERCENT AUTO 5 % (21-46); MONOCYTES ABSOLUTE AUTO 1.34 K/mm3 (0.16-1.47); MONOCYTES PERCENT AUTO 6 % (4-13); Mean Corpuscular HGB 26.6 pg (26.0-34.0); Mean Corpuscular HGB Conc 33.4 g/dL (31.5-36.5); Mean Corpuscular Volume 80 fL (80-100); Mean Platelet Volume 11.8 fL (9.1-12.4); NEUTROPHILS ABSOLUTE AUTO 19.38 K/mm3 (1.96-9.15); NEUTROPHILS PERCENT AUTO 88 % (41-73); Platelet Count 181 K/mm3 (150-400); RDW Coefficient Variation 14.5 % (11.7-14.2); RDW Standard Deviation 41.9 fL (35.1-46.3); Red Blood Cell Count 4.28 M/mm3 (3.80-5.20); White Blood Cell Count 22.03 K/mm3 (4.00-11.30)
[2023-03-19 20:08] LABS: Source, Urine Foley catheter
[2023-03-19 20:23] LABS: Bilirubin, Urine Neg (Neg); Blood, Urine 1+ (Neg); Glucose Qualitative, Urine Neg (Neg); Ketones, Urine Neg (Neg); Leukocyte Esterase, Urine Neg (Neg); Nitrite, Urine Neg (Neg); Protein, Urine Neg (Neg); Specific Gravity, Urine 1.015 (1.003-1.022); Urobilinogen, Urine NORM (Normal)
[2023-03-19 20:42] LABS: Appearance, Urine Clear (Clear); Color, Urine Pale Yellow (P-Yellow)
[2023-03-19 20:43] LABS: Amorphous Light (0-Heavy); Bacteria Rare /hpf; Red Blood Cells, Urine 0-2 /hpf (0-2); Squamous Epithelial Cells Rare /hpf (Few); White Blood Cells, Urine 0-2 /hpf (0-5)
== END 2023-03-20 00:37 | disposition short-term general hospital (02) | DRG 833 ==
LOC: OBS 08:00 → BC 09:38
PROVIDERS: Advanced Practice Midwife; ADMIT Obstetrics & Gynecology
DX: O34.32 Maternal care for cervical incompetence, second trimester (principal); Z3A.22 22 weeks gestation of pregnancy; D72.829 Elevated white blood cell count, unspecified; O99.342 Other mental disorders complicating pregnancy, second trimester; F41.9 Anxiety disorder, unspecified; F32.A Depression, unspecified; Z87.59 Personal history of other complications of pregnancy, childbirth and the puerperium; Z88.5 Allergy status to narcotic agent; Z91.040 Latex allergy status
CPT/HCPCS: 36415; 59025; 76815; 80053; 81001; 81003; 85025; 86850; 86870; 86900; 86901; 86922; 86923; 96372; A9270; C1751; J0295; J0702; J2791; J3010; J3105; J3475; J7120

== ENCOUNTER 2024-07-14 19:24 | Observation (INO) | payer OTHER ==
[~2024-07-14] VITALS: Ht 160 cm; Wt 87.2 kg
[2024-07-14 20:59] LABS: BASOPHILS ABSOLUTE AUTO 0.04 K/mm3 (0.00-0.23); BASOPHILS PERCENT AUTO 0 % (0-2); EOSINOPHILS ABSOLUTE AUTO 0.05 K/mm3 (0.00-0.68); EOSINOPHILS PERCENT AUTO 0 % (0-6); Hematocrit 45.2 % (33.0-51.0); Hemoglobin 15.3 g/dL (11.5-16.0); IMMATURE GRAN ABSOLUTE AUTO 0.07 K/mm3 (0.00-0.10); IMMATURE GRAN PERCENT AUTO 0 % (0-1); LYMPHOCYTES ABSOLUTE AUTO 0.65 K/mm3 (0.84-5.20); LYMPHOCYTES PERCENT AUTO 3 % (21-46); MONOCYTES ABSOLUTE AUTO 1.06 K/mm3 (0.16-1.47); MONOCYTES PERCENT AUTO 5 % (4-13); Mean Corpuscular HGB 26.7 pg (26.0-34.0); Mean Corpuscular HGB Conc 33.8 g/dL (31.5-36.5); Mean Corpuscular Volume 79 fL (80-100); Mean Platelet Volume 11.8 fL (9.1-12.4); NEUTROPHILS ABSOLUTE AUTO 19.29 K/mm3 (1.96-9.15); NEUTROPHILS PERCENT AUTO 91 % (41-73); Platelet Count 256 K/mm3 (150-400); RDW Coefficient Variation 13.9 % (11.7-14.2); RDW Standard Deviation 39.4 fL (35.1-46.3); Red Blood Cell Count 5.74 M/mm3 (3.80-5.20); White Blood Cell Count 21.16 K/mm3 (4.00-11.30)
[2024-07-14 21:18] LABS: Albumin, Blood 3.9 g/dL (3.4-5.0); Bilirubin, Total 0.6 mg/dL (0.1-1.0); Bun/Creatinine Ratio 16.3 (12.0-20.0); Calcium, Blood 8.6 mg/dL (8.5-10.1); Creatinine, Blood 0.8 mg/dL (0.40-1.00); Globulin, Blood 4.1 g/dL (2.2-4.0); Potassium, Blood 3.8 mmol/L (3.5-5.5)
[2024-07-14 21:38] LABS: Influenza A, PCR NEGATIVE (NEGATIVE); Influenza B, PCR NEGATIVE (NEGATIVE); Resp Syncytial Virus, PCR NEGATIVE (NEGATIVE); SARS-Cov-2 (COVID-19) PCR, MMC NEGATIVE (NEGATIVE)
[2024-07-14] MEDS ORDERED: Piperacillin/Tazobactam Sod 4.5 GM in NS 100 ML IV ONE (23:10)
[2024-07-14] MEDS ORDERED: Ondansetron HCl 2 MG / ML 2ML Vial IV ONE (23:10)
[2024-07-14] MEDS ORDERED: NS 1,000 ML IV SCH (23:10)
[2024-07-14] MEDS ORDERED: Morphine Sulfate 4 MG/1 ML Injection IV ONE (23:10)
[2024-07-15] MEDS ORDERED: HYDROmorphone HCl/Pf 1MG SYR IV PRN ×2 (00:15→09:25)
[2024-07-15 01:50] LABS: Source, Urine Clean Catch
[2024-07-15 01:53] LABS: Bilirubin, Urine Neg (Neg); Blood, Urine Neg (Neg); Glucose Qualitative, Urine Neg (Neg); Ketones, Urine 3+ (Neg); Leukocyte Esterase, Urine Neg (Neg); Nitrite, Urine Neg (Neg); Protein, Urine Neg (Neg); Specific Gravity, Urine 1.015 (1.003-1.022); Urobilinogen, Urine NORM (Normal)
[2024-07-15] MEDS ORDERED: Prochlorperazine Edisylate 10 mg Vial IV PRN (01:55)
[2024-07-15] MEDS ORDERED: Acetaminophen 325 MG TABLET PO PRN (01:55)
[2024-07-15] MEDS ORDERED: FLU VACC TS2024-25(6MOS UP)/PF 45 MCG/0.5 ML SYRINGE IM ONE (01:55)
[2024-07-15] MEDS ORDERED: Ondansetron HCl 2 MG / ML 2ML Vial IV PRN (01:55)
[2024-07-15] MEDS ORDERED: Lactated Ringer's 1,000 ML IV SCH (02:00)
[2024-07-15 02:11] LABS: Appearance, Urine Clear (Clear); Color, Urine Pale Yellow (P-Yellow)
[2024-07-15 05:36] LABS: BASOPHILS ABSOLUTE AUTO 0.03 K/mm3 (0.00-0.23); BASOPHILS PERCENT AUTO 0 % (0-2); EOSINOPHILS PERCENT AUTO 0 % (0-6); Hematocrit 40.4 % (33.0-51.0); Hemoglobin 13.3 g/dL (11.5-16.0); IMMATURE GRAN ABSOLUTE AUTO 0.04 K/mm3 (0.00-0.10); IMMATURE GRAN PERCENT AUTO 0 % (0-1); LYMPHOCYTES ABSOLUTE AUTO 0.67 K/mm3 (0.84-5.20); LYMPHOCYTES PERCENT AUTO 5 % (21-46); MONOCYTES ABSOLUTE AUTO 0.92 K/mm3 (0.16-1.47); MONOCYTES PERCENT AUTO 7 % (4-13); Mean Corpuscular HGB 26.3 pg (26.0-34.0); Mean Corpuscular HGB Conc 32.9 g/dL (31.5-36.5); Mean Corpuscular Volume 80 fL (80-100); Mean Platelet Volume 11.3 fL (9.1-12.4); NEUTROPHILS ABSOLUTE AUTO 11.36 K/mm3 (1.96-9.15); NEUTROPHILS PERCENT AUTO 87 % (41-73); Platelet Count 205 K/mm3 (150-400); RDW Coefficient Variation 13.8 % (11.7-14.2); RDW Standard Deviation 40.2 fL (35.1-46.3); Red Blood Cell Count 5.06 M/mm3 (3.80-5.20); White Blood Cell Count 13.02 K/mm3 (4.00-11.30)
[2024-07-15 06:07] LABS: Albumin, Blood 3.2 g/dL (3.4-5.0); Albumin/Globulin Ratio 0.9 (0.8-1.8); Bun/Creatinine Ratio 14.9 (12.0-20.0); Calcium, Blood 7.9 mg/dL (8.5-10.1); Creatinine, Blood 0.81 mg/dL (0.40-1.00); Globulin, Blood 3.6 g/dL (2.2-4.0); Magnesium, Blood 2.1 mg/dL (1.6-2.4); Potassium, Blood 3.7 mmol/L (3.5-5.5); Total Protein, Blood 6.8 g/dL (6.4-8.2)
[2024-07-15] MEDS ORDERED: Lactobacil 2-S.Thermo-Bifido 1 1 Cap PO SCH (09:00)
[2024-07-15] MEDS ORDERED: Naproxen 250 MG TAB PO PRN (11:05)
[2024-07-15 17:09] VITALS: BP 112/73
--- NOTE | 2024-07-15 18:24 | NUR ---
PT ADMITTED TO ROM 313 AT 1700- GOURNEY TO BED SLIDE TX. PT ORIENTED TO ROOM SET UP AND SAFETY. PT STATES SHE IS HAVING LOW ABD PAIN, "MIX OF PRESUER, SOMETIMES STABBING, RANGES FROM LEVEL 2-7/10. WILL COMPLETE FULL ASSESSMENT.
[2024-07-15 19:35] VITALS: BP 116/70
[2024-07-15] MEDS ORDERED: DiphenhydrAMINE HCl 50 MG/ML 1ML Vial IV ONE (19:35)
[2024-07-16 05:08] VITALS: BP 104/57
[2024-07-16 05:19] LABS: BASOPHILS ABSOLUTE AUTO 0.04 K/mm3 (0.00-0.23); BASOPHILS PERCENT AUTO 1 % (0-2); EOSINOPHILS ABSOLUTE AUTO 0.17 K/mm3 (0.00-0.68); EOSINOPHILS PERCENT AUTO 2 % (0-6); Hematocrit 38.1 % (33.0-51.0); Hemoglobin 12.4 g/dL (11.5-16.0); IMMATURE GRAN ABSOLUTE AUTO 0.02 K/mm3 (0.00-0.10); IMMATURE GRAN PERCENT AUTO 0 % (0-1); LYMPHOCYTES ABSOLUTE AUTO 1.24 K/mm3 (0.84-5.20); LYMPHOCYTES PERCENT AUTO 15 % (21-46); MONOCYTES ABSOLUTE AUTO 1.08 K/mm3 (0.16-1.47); MONOCYTES PERCENT AUTO 13 % (4-13); Mean Corpuscular HGB 25.9 pg (26.0-34.0); Mean Corpuscular HGB Conc 32.5 g/dL (31.5-36.5); Mean Corpuscular Volume 80 fL (80-100); Mean Platelet Volume 11.5 fL (9.1-12.4); NEUTROPHILS ABSOLUTE AUTO 5.63 K/mm3 (1.96-9.15); NEUTROPHILS PERCENT AUTO 69 % (41-73); Platelet Count 190 K/mm3 (150-400); RDW Coefficient Variation 13.8 % (11.7-14.2); Red Blood Cell Count 4.78 M/mm3 (3.80-5.20); White Blood Cell Count 8.18 K/mm3 (4.00-11.30)
[2024-07-16 05:50] LABS: Bun/Creatinine Ratio 12.9 (12.0-20.0); Calcium, Blood 7.7 mg/dL (8.5-10.1); Creatinine, Blood 0.78 mg/dL (0.40-1.00); Potassium, Blood 3.5 mmol/L (3.5-5.5)
--- NOTE | 2024-07-16 06:36 | NUR ---
SHIFT SUMMARY, PATIENT IS A&OX4. PATIENT IS PAINFUL WITH MOVEMENT AND DOES NOT HAVE MOTIVATION TO DO THINGS ON HER OWN AT THIS TIME. HAS BEEN AT BEDSIDE T/O NIGHT. PATIENT COMPLAINT OF ITCHING AT THE BEGINNING OF SHIFT-SHELBY ORDERED FOR A ONE TIME DOSE OF BENADRYL 25MG IV-SEE PREVIOUS ORDERS. PATIENT C/O NAUSEA AND PAIN MEDICATIONS MAKE HER NAUSEOUS-PATIENT REQUESTS NAUSEA MEDICATIONS AT TIME OF PAIN MED REQUEST. BED IS LOCKED IN THE LOWEST POSITION WITH CALL LIGHT IN REACH. CARE IS ONGOING.
[2024-07-16 07:44] VITALS: BP 122/63
[2024-07-16] MEDS ORDERED: FentaNYL Citrate 50 MCG/ML 2 ML Injection IV PRN (08:00)
[2024-07-16] MEDS ORDERED: OxyCODONE 5 mg/Acetamin 325 mg TABLET PO ONE (15:00)
[2024-07-16] MEDS ORDERED: OxyCODONE 5 mg/Acetamin 325 mg TABLET PO PRN (15:00)
[2024-07-16] MEDS ORDERED: VISBIOME 112.51 EACH PO (16:45)
[2024-07-16] MEDS ORDERED: NAPR500EC PO (16:45)
[2024-07-16] MEDS ORDERED: Acetaminophen325 M1 PO (16:45)
[2024-07-16] MEDS ORDERED: ONDA4ODT MM (16:45)
--- NOTE | 2024-07-16 17:18 | NUR ---
PT DISCHARGED WITH INSTRUCTIONS. PT IS TOLERATING FLUIDS AND HELD DOWN LUNCH OF 1/2 CHICKEN BREAST, CUP OF MASHED POTATOE AND VEGGIES. ABD PAIN LESS TODAY AND STATES SHE IS FEELING BETTER. RX FAXED TO [facility]. WHEELCHAIR OUT TO PRIVATE CAR, BELONGINGS SENT HOME.
== END 2024-07-16 17:00 | disposition home or self-care (01) ==
LOC: ER 19:24 → ERHOLD 19:25 → MEDS 07-15 17:05
PROVIDERS: Physician Assistant; Student in an Organized Health Care Education/Training Program; ADMIT Student in an Organized Health Care Education/Training Program
DX: D72.829 Elevated white blood cell count, unspecified (principal); R65.10 Systemic inflammatory response syndrome (SIRS) of non-infectious origin without acute organ dysfunction; D72.810 Lymphocytopenia; R11.2 Nausea with vomiting, unspecified; Z91.040 Latex allergy status; Z88.8 Allergy status to other drugs, medicaments and biological substances
CPT/HCPCS: 0241U; 36415; 74177; 80048; 80053; 81003; 83605; 83735; 84703; 85025; 85060; 87040; 96361; 96365; 96375; 96376; 99285-25; A9270; G0378; J0780; J1171; J1200; J2270; J2405; J2543; J3010; J7030; J7120; Q9967

== ENCOUNTER 2024-08-06 15:44 | Observation (INO) | payer OTHER ==
[~2024-08-06] VITALS: Ht 160 cm; Wt 82.8 kg
[~2024-08-06 15:44] MED LIST changes: +Acetaminophen325 M1 PO; +NAPR500EC PO; +VISBIOME 112.51 EACH PO
[2024-08-06 16:30] LABS: BASOPHILS ABSOLUTE AUTO 0.04 K/mm3 (0.00-0.23); BASOPHILS PERCENT AUTO 0 % (0-2); EOSINOPHILS ABSOLUTE AUTO 0.14 K/mm3 (0.00-0.68); EOSINOPHILS PERCENT AUTO 1 % (0-6); Hemoglobin 14.7 g/dL (11.5-16.0); IMMATURE GRAN ABSOLUTE AUTO 0.03 K/mm3 (0.00-0.10); IMMATURE GRAN PERCENT AUTO 0 % (0-1); LYMPHOCYTES ABSOLUTE AUTO 2.07 K/mm3 (0.84-5.20); LYMPHOCYTES PERCENT AUTO 17 % (21-46); MONOCYTES ABSOLUTE AUTO 1.05 K/mm3 (0.16-1.47); MONOCYTES PERCENT AUTO 9 % (4-13); Mean Corpuscular HGB Conc 33.4 g/dL (31.5-36.5); Mean Corpuscular Volume 78 fL (80-100); Mean Platelet Volume 11.2 fL (9.1-12.4); NEUTROPHILS ABSOLUTE AUTO 9.07 K/mm3 (1.96-9.15); NEUTROPHILS PERCENT AUTO 73 % (41-73); Platelet Count 259 K/mm3 (150-400); RDW Coefficient Variation 13.7 % (11.7-14.2); RDW Standard Deviation 38.5 fL (35.1-46.3); Red Blood Cell Count 5.65 M/mm3 (3.80-5.20)
[2024-08-06 16:35] LABS: Source, Urine Clean Catch
[2024-08-06 16:46] LABS: Appearance, Urine Cloudy (Clear); Bilirubin, Urine Neg (Neg); Blood, Urine Neg (Neg); Color, Urine Yellow (P-Yellow); Glucose Qualitative, Urine Neg (Neg); Ketones, Urine 1+ (Neg); Leukocyte Esterase, Urine 2+ (Neg); Nitrite, Urine Neg (Neg); Protein, Urine 1+ (Neg); Specific Gravity, Urine 1.025 (1.003-1.022); Urobilinogen, Urine 1+ (Normal)
[2024-08-06 16:52] LABS: Bacteria Many /hpf; Red Blood Cells, Urine Not Seen /hpf (0-2); Squamous Epithelial Cells Many /hpf (Few)
[2024-08-06 16:57] LABS: Calcium, Blood 8.7 mg/dL (8.5-10.1); Creatinine, Blood 0.92 mg/dL (0.40-1.00)
[2024-08-06] MEDS ORDERED: Morphine Sulfate 4 MG/1 ML Injection IV ONE (19:50)
[2024-08-06] MEDS ORDERED: FentaNYL Citrate 50 MCG/ML 2 ML Injection IV ONE (21:35)
[2024-08-06] MEDS ORDERED: NS 1,000 ML IV SCH (21:50)
[2024-08-06] MEDS ORDERED: Acetaminophen 325 MG TABLET PO PRN (21:50)
[2024-08-06] MEDS ORDERED: Ondansetron HCl 2 MG / ML 2ML Vial IV PRN (21:50)
[2024-08-06] MEDS ORDERED: FentaNYL Citrate 50 MCG/ML 2 ML Injection IV PRN (21:55)
[2024-08-06] MEDS ORDERED: Ondansetron HCl 2 MG / ML 2ML Vial IV ONE (23:10)
[2024-08-06 23:30] VITALS: BP 115/77
--- NOTE | 2024-08-06 23:30 | NUR ---
ARRIVAL TO SURGICAL ROOM 226 AT 2314. PT ARRIVED TO SURGICAL UNIT FROM ER VIA WHEEL CHAIR. PT PAINFUL UPON ARRIVAL. PT WEAK WITH TRANSFERING WITH 1 PERSON ASSIST. ORIENTED TO ROOM AND CALL LIGHT. PT'S SPOUSE PRESENT AT BEDSIDE. PT IS A NON SMOKER, SPOUSE USES VAPE PEN AND HAS IN POSESSION. THIS RN EDUCATED PT AND SPOUSE ON SMOKING POLICY, THIS RN REQUESTED SPOUSE TO PUT VAPE PEN OFF CAMPUS IN VEHICLE. PT AND SPOUSE VERBALIZED UNDERSTANDING AND AGREED.
[2024-08-07] VITALS (28 sets, daily range): BP systolic 105–153; BP diastolic 54–90
[2024-08-07] MEDS ORDERED: Prochlorperazine Edisylate 10 mg Vial IV PRN (00:05)
[2024-08-07] MEDS ORDERED: NS 1,000 ML IV SCH (00:05)
[2024-08-07] MEDS ORDERED: FentaNYL Citrate 50 MCG/ML 2 ML Injection IV PRN (00:05)
[2024-08-07] MEDS ORDERED: Promethazine HCl 25 MG Tab PO PRN (00:05)
[2024-08-07] MEDS ORDERED: CefTRIAXone Sodium 1,000 MG in NS 100 ML IV ONE (05:30)
--- NOTE | 2024-08-07 07:52 | NUR ---
SHIFT SUMMARY NOC. PT ADMITTED THIS SHIFT FOR PELVIC PAIN. PT VERY PAINFUL THIS SHIFT AND NEW ORDERS RECEIVED FROM DR. CASTELLANOS TO CONTROL PAIN AND NAUSEA. PT HAD EPISODES OF SHALLOW BREATHING AFTER GIVEN IV FENT 50MCG. PT'S SATS REMAINED ABOVE 94% AND RESPS ABOVE 15. PT VERBALIZED THAT SHE DOES NOT LIKE HOW IV PAIN MEDS MAKE HER FEEL. PT REPORTS MINIMAL RELIEF OF PAIN SX EVEN WITH MEDS. PT NPO SINCE 0000. G INFECTION PREVENTION DONE. AT BEDSIDE T/O NIGHT, CARING AND ATTENTIVE. CALL LIGHT IN REACH.
[2024-08-07] MEDS ORDERED: Lactated Ringer's 1,000 ML IV SCH ×2 (09:50→12:55)
[2024-08-07] MEDS ORDERED: CeFAZolin Sodium 2,000 MG in NS 100 ML IV SCH ×2 (10:05→18:00)
[2024-08-07] MEDS ORDERED: Bupivacaine 0.5% W/EPI 1:200000 SDV 30 ML Vial ONE (10:32)
--- NOTE | 2024-08-07 10:37 | NUR ---
PT TO DAY SURGERY AT THIS TIME. HAS POSSESSION OF PT'S JEWELRY (RING AND NOSE RING).
--- NOTE | 2024-08-07 10:51 | NUR ---
History, Chart, Medications and Allergies reviewed before start of procedure. Pre-Op teaching done. Pt verbalizes understanding. Patient confirms NPO status and agrees with scheduled surgery.
[2024-08-07] MEDS ORDERED: Rocuronium Bromide 10 MG/ML 5ML Injection IV ONE (11:02)
[2024-08-07] MEDS ORDERED: Lidocaine HCl 2% 20 ML MDV ONE (11:02)
[2024-08-07] MEDS ORDERED: Dexamethasone Sod Phos 10 MG/ML 1ML VIAL ONE (11:02)
[2024-08-07] MEDS ORDERED: propofoL 20 ML IV ONE (11:03)
[2024-08-07] MEDS ORDERED: FentaNYL Citrate 50 MCG/ML 2 ML Injection ONE ×3 (11:03→12:40)
[2024-08-07] MEDS ORDERED: Sodium Chloride 0.9% Inj 10 ML IV ONE (11:06)
[2024-08-07] MEDS ORDERED: Phenylephrine HCl 100 MCG/ML-NS 10MLSYR (1MG/10ML) ONE (11:14)
[2024-08-07] MEDS ORDERED: Ondansetron HCl 2 MG / ML 2ML Vial IV PRN (11:25)
[2024-08-07] MEDS ORDERED: HYDROmorphone HCl 0.5 MG/0.5 ML SYR ONE ×3 (12:01→12:40)
[2024-08-07] MEDS ORDERED: Ondansetron HCl 2 MG / ML 2ML Vial ONE (12:02)
[2024-08-07] MEDS ORDERED: Sugammadex Sodium 200 MG/2ML SDV (100 MG/ML) ONE (12:02)
--- NOTE | 2024-08-07 12:18 | NUR ---
AGREE WITH RECRUITING MANAGER ASSESSMENT AND DOCUMENTATION
[2024-08-07] MEDS ORDERED: Naproxen 500 MG Tab PO PRN (12:55)
[2024-08-07] MEDS ORDERED: Simethicone 80 MG Chew PO PRN (12:55)
[2024-08-07] MEDS ORDERED: Naloxone HCl 0.4MG / ML 1ML Vial IV PRN (12:55)
[2024-08-07] MEDS ORDERED: OxyCODONE 7.5 mg/Acetam 325 mg TABLET PO PRN (13:00)
[2024-08-07] MEDS ORDERED: Naloxone HCl 0.4MG / ML 1ML Vial ONE ×2 (13:16→13:30)
--- NOTE | 2024-08-07 14:40 | NUR ---
POST OP S/P PELVIC WASH OUT + ILENE. PT DROWSY, BUT AWAKENS TO VERBAL STIMULI. FORGETFUL AT TIMES. LAP SITES X2 TO ABD HAVE WOUND GLUE AND ARE CDI. PT REPORTS 10/10 ABD PAIN. KPAD TO ABD FOR COMFORT. CALL OUT TO DR. CASTELLANOS ABOUT PAIN MANAGEMENT PLAN. POST OP VS IN PROGRESS AND STABLE. WEANING O2 TOLERATED. CONT BIOX IN PLACE. IVF INFUSING PER ORDERS. OFFERING ICE CHIPS AND SIPS OF WATER. FAMILY AT BEDSIDE FOR SUPPORT. CALL LIGHT WITHIN REACH.
--- NOTE | 2024-08-07 17:40 | NUR ---
SHIFT SUMMARY: PT POD 0 W/ PELVIC WASHOUT AND ILENE. LAP SITES X2 C/D/I. DENIES BLEEDING. ORAL PERCOCET AND NEPOXEN FOR PAIN CONTROL. TOLERATING CLEAR LIQUID DIET SLOWLY. LACTATED RINGERS RUNNING AT 125. CONT. BIOX IN PLACE. PT ANXIOUS AT TIMES. AT BEDSIDE FOR SUPPORT. CALL LIGHT IN REACH. BED IN LOWEST POSITION.
[2024-08-08 05:47] VITALS: BP 138/88
[2024-08-08 06:10] LABS: BASOPHILS ABSOLUTE AUTO 0.03 K/mm3 (0.00-0.23); BASOPHILS PERCENT AUTO 0 % (0-2); EOSINOPHILS ABSOLUTE AUTO 0.01 K/mm3 (0.00-0.68); EOSINOPHILS PERCENT AUTO 0 % (0-6); Hematocrit 38.4 % (33.0-51.0); Hemoglobin 12.8 g/dL (11.5-16.0); IMMATURE GRAN ABSOLUTE AUTO 0.05 K/mm3 (0.00-0.10); IMMATURE GRAN PERCENT AUTO 0 % (0-1); LYMPHOCYTES ABSOLUTE AUTO 1.66 K/mm3 (0.84-5.20); LYMPHOCYTES PERCENT AUTO 11 % (21-46); MONOCYTES ABSOLUTE AUTO 1.37 K/mm3 (0.16-1.47); MONOCYTES PERCENT AUTO 9 % (4-13); Mean Corpuscular HGB 26.4 pg (26.0-34.0); Mean Corpuscular HGB Conc 33.3 g/dL (31.5-36.5); Mean Corpuscular Volume 79 fL (80-100); Mean Platelet Volume 11.8 fL (9.1-12.4); NEUTROPHILS PERCENT AUTO 79 % (41-73); Platelet Count 229 K/mm3 (150-400); RDW Coefficient Variation 13.5 % (11.7-14.2); RDW Standard Deviation 39.3 fL (35.1-46.3); Red Blood Cell Count 4.85 M/mm3 (3.80-5.20); White Blood Cell Count 14.92 K/mm3 (4.00-11.30)
--- NOTE | 2024-08-08 06:48 | NUR ---
SHIFT SUMMARY PT POD 0 PELVIC WASHOUT AND LYSIS OF ADHESIONS. PT HAS HAD INTERMITTENT PAIN THAT SHE REPORTS IN HER ABD AND LEFT GROIN. INCREASES WITH MOVEMENT. PT SLOW WITH AMBULATION DUE TO PAIN, REQUIRING 2 PA AT TIMES TO BSC. PAIN MANAGED PER EMAR. PT MAINTAINING SATS ON RA, GLORIA BIOX IN PLACE. VERY MINIMAL BLEEDING. SURGICAL SITE WNL. IV ANTIBIOTICS, VITALS STABLE. BED IN LOWEST POSITION, CALL LIGHT WITHIN REACH.
[2024-08-08 07:15] VITALS: BP 104/65
--- NOTE | 2024-08-08 10:51 | NUR ---
wonderyung in to see pt.
[2024-08-08] MEDS ORDERED: OXYACE7.5T PO (11:27)
[2024-08-08] MEDS ORDERED: SIME80CH PO (11:27)
--- NOTE | 2024-08-08 15:08 | NUR ---
PT WEAK, PAINFUL SAT UP IN CHAIR FOR NEARLY AN HOUR AFTER USING BSC. ENCURAGED PT TO CONTINUE SITTING UP BUT DECLINED, STATING TOO UNCOMFORTABLE. ENCOURAGED PT TO TRY TO WALK TO DOOR, PT REFUSED AND SPOUSE STATED SHE WAS "IN NO CONDITION" TO AMBULATE AT THIS TIME. PROVIDED IS AND ENCOURAGED PT USE. PT DEMONSTRATED USED. MEDICATED PER ORDERS FOR PAIN. FAMILY BEDSIDE. PT RESTING IN BED W/ABDOMINAL BINDER ON, KPAD IN PLACE AND CALL LIGHT IN REACH. SPOKE TO DR CASTELLANOS REGARDING SPOUSE'S CONCERNS OF PT BEING DC'D AND WEAKNESS. DC ORDERS CANCELLED.
[2024-08-08 15:09] VITALS: BP 115/65
--- NOTE | 2024-08-08 17:05 | NUR ---
SUMMARY PT WAS SEEN BY DR CASTELLANOS THIS AM WHO PLANNED TO DC PT HOME. SPOUSE CAME BACK AND WAS INITIALLY ANGRY THAT PT WAS BEING DC'D BUT THEN APOLOGIZED, STATING WORRIED ABOUT BEING ABLE TO CARE FOR PT AT HOME IN "PRESENT CONDITION". UPON GETTING PT UP TO VOID, PT WAS SLIGHTLY DIZZY AND INITIALLY TOOK TWO STAFF MEMBERS TO TRANSFER TO [facility] [place]. PT THEN GOT TO CHAIR WITH ONE STAFF MEMBER AND SAT UP NEARLY AN HOUR BEFORE C/O OF INCREASING PAIN AND REQUESTED TO GET BACK TO BED. ATTEMPTED TO HAVE PT AMBULATE TO DOOR BUT PT AND SPOUSE DECLINED. DISCUSSED SITUATION AND PT AND SPOUSE'S CONCERNS WITH DR CASTELLANOS AND DISCHARGE ORDERS WERE CANCELLED. THIS AFTERNOON, UPON REASSESSING PT'S PAIN AFTER ONE PERCOCET PER ORDERS, PT BECAME TEARFUL R/T TO PAIN OF 9/10. ADMINISTERED SECOND PERCOCET PER ORDERS. PT USING IS INSTRUCTED. KPAD ON ABDOMEN FOR COMFORT. CALL LIGHT IN REACH.
--- NOTE | 2024-08-08 18:02 | NUR ---
THIS FASHION ARTIST OFFERED TO GET PATIENT UP TO CHAIR FOR DINNER.DECLINED.RN NOTIFIED.
[2024-08-08 20:01] VITALS: BP 114/64
[2024-08-09 04:37] LABS: BASOPHILS ABSOLUTE AUTO 0.04 K/mm3 (0.00-0.23); BASOPHILS PERCENT AUTO 0 % (0-2); EOSINOPHILS ABSOLUTE AUTO 0.19 K/mm3 (0.00-0.68); EOSINOPHILS PERCENT AUTO 2 % (0-6); Hematocrit 35.8 % (33.0-51.0); Hemoglobin 11.8 g/dL (11.5-16.0); IMMATURE GRAN ABSOLUTE AUTO 0.03 K/mm3 (0.00-0.10); IMMATURE GRAN PERCENT AUTO 0 % (0-1); LYMPHOCYTES ABSOLUTE AUTO 2.17 K/mm3 (0.84-5.20); LYMPHOCYTES PERCENT AUTO 24 % (21-46); MONOCYTES ABSOLUTE AUTO 0.96 K/mm3 (0.16-1.47); MONOCYTES PERCENT AUTO 10 % (4-13); Mean Corpuscular Volume 79 fL (80-100); Mean Platelet Volume 11.7 fL (9.1-12.4); NEUTROPHILS ABSOLUTE AUTO 5.82 K/mm3 (1.96-9.15); NEUTROPHILS PERCENT AUTO 63 % (41-73); Platelet Count 197 K/mm3 (150-400); RDW Coefficient Variation 13.8 % (11.7-14.2); RDW Standard Deviation 39.7 fL (35.1-46.3); Red Blood Cell Count 4.53 M/mm3 (3.80-5.20); White Blood Cell Count 9.21 K/mm3 (4.00-11.30)
[2024-08-09 05:05] VITALS: BP 119/71
[2024-08-09 05:19] LABS: Albumin, Blood 2.9 g/dL (3.4-5.0); Bilirubin, Total 0.2 mg/dL (0.1-1.0); Bun/Creatinine Ratio 15.7 (12.0-20.0); Calcium, Blood 7.6 mg/dL (8.5-10.1); Creatinine, Blood 0.77 mg/dL (0.40-1.00); Globulin, Blood 2.8 g/dL (2.2-4.0); Potassium, Blood 3.6 mmol/L (3.5-5.5); Total Protein, Blood 5.7 g/dL (6.4-8.2)
--- NOTE | 2024-08-09 06:30 | NUR ---
SPOKE WITH DR CASTELLANOS REGARDING PT UPDATE.I QUESTIONED REGARDING PT BASELINE PT APPEARS CHILDLIKE IN DEMEANOR.PTS NIGHT RN REPORTS PT CONTINUES WITH PAIN LEVEL 7-8 REGARDLESS OF MEDS.THIS SHIFT,PT REQUIRED 2 STAFF ASSIST FOR BRP DUE TO C/O PAIN.PT CONT WITH PO GILBERT MEDS.ALSO REPORTED PER RN THAT PT IS ABLE TO LIFT HER WATER CUP INTERMITTENTLY ONLY WHEN IS AWAKE, PT REQUESTS HELP FOR LIFTING GLASS TO HER MOUTH. WONDERLY VERB HE WILL BE SPEAKING WITH PT AND WITH ROUNDING TODAY HE DOES NOT REMEMBER THIS FULLY BEING THE DYNAMIC PREOP.
--- NOTE | 2024-08-09 06:36 | NUR ---
SHIFT SUMMARY NO ACUTE CHANGES TO REPORT OVERNIGHT. PT REPORTS THAT SHE HAS BEEN AWAKE MOST OF THE NIGHT UNABLE TO SLEEP. PAIN MANAGED WITH MEDS PER EMAR, HEATING PAD IN PLACE. PT WAS ABLE TO AMBULATE TO THE BATHROOM THIS SHIFT WITH 2 PA ASSIST. PT DID NOT REPORT ANY DIZZINESS. HOWEVER GAIT IS VERY SLOW, AND PT IS STILL WEAK. SURGICAL SITE WNL. VO VAGINAL BLEEDING. VITALS ARE STABLE. IV ANTIBIOTICS PER ORDERS. PT IS VERY ANXIOUS, HAS BEEN AT BEDSIDE T/O THE NIGHT. DIRECTOR OF DESIGN UPDATED DR. DODGE ON CURRENT PT STATUS. NO ADDITIONAL ORDERS GIVEN. VITALS STABLE. BED IN LOWEST POSITION, CALL LIGHT WITHIN REACH.
[2024-08-09 07:31] VITALS: BP 108/57
--- NOTE | 2024-08-09 07:55 | NUR ---
PAIN/MOBILIZATION DISCUSSED PAIN WITH PATIENT. PT RATING PAIN 8/10. WHEN ASKED IF PAIN PILLS MAKE ANY DIFFERENCE, PT STATED YES, THEY DO HELP "SOME". EDUCATED PT ON IMPORTANCE OF MOBILIZING AND BEING OOB REGARDING MUSCLE STRENGTH, RESPIRATORY HEALTH AND GI MOTILITY. PT VERBALIZED UNDERSTANDING BUT DECLINED SITTING IN RECLINER AT THIS TIME, STATING WILL AFTER PAIN MEDS HAVE TIME TO TAKE EFFECT. PT AMBULATED TO RESTROOM TO VOID.
--- NOTE | 2024-08-09 09:20 | NUR ---
PATIENT REQUEST CUP WITH HANDLE.FILLED CUP ONLY HALF WAY FOR PATIENT TO TRY TO GIVE HERSELF DRINKS.PATIENT COMPLAINS SHES UNABLE TO FEED SELF OR TAKE SIPS. IS ASSITING PATIENT PER HER OWN REQUEST.WHEN IS OUT OF ROOM PATIENT REQUEST THIS SURVEY ENGINEER PROVIDE HELP WITH DRINKS.
--- NOTE | 2024-08-09 09:24 | NUR ---
THIS WELDER SETTER RESISTANCE MACHINE HELPED PATIENT FROM BATHROOM BACK TO BED.PATIENT STATED," I CANT WALK BY MYSELF..MY LEGS AND BELLY HURT."THIS WELDER SETTER RESISTANCE MACHINE PROVIDED MAX 1 PERSON ASSIT BACK TO BED AND TWO PEOPLE TO HELP PATIENT LAY DOWN.
--- NOTE | 2024-08-09 10:49 | NUR ---
PT NAUSEATED. MEDICATED PER ORDERS W/12.5 MG PHENERGAN. DISCUSSED IMPORTANCE OF MOBILIZING WITH PT AND SPOUSE AGAIN FOR LUNG AND GI FUNCTION AND STRENGTH MAINTENANCE.
--- NOTE | 2024-08-09 12:17 | NUR ---
DR CASTELLANOS IN TO SEE PT. REPORTED PT'S FOOT PAIN TO DR CASTELLANOS, L FOOT LOOKED AT. NO SWELLING OR BRUISING NOTED.
[2024-08-09] MEDS ORDERED: OxyCODONE 10/Acetamin 325 TABLET PO PRN (13:05)
--- NOTE | 2024-08-09 13:59 | NUR ---
THIS MERGERS AND ACQUISITIONS CONSULTANT OFFERED RECLINER AT BREAKFAST AND LUNCH.OFFERED WALKS WHEN UP TO BATHROOM.
[2024-08-09 16:11] VITALS: BP 111/68
--- NOTE | 2024-08-09 17:05 | NUR ---
SUMMARY NO ACUTE CHANGES T/O SHIFT. PT SLEPT THIS AFTERNOON AND WENT FOR RIDE IN WC W/SPOUSE. RATED PAIN 8/10 WHEN RETURNED TO ROOM. MEDICATED PER ORDERS FOR PAIN. DR CASTELLANOS IN MIDDAY TO SEE PT AND DISCUSS LABS AND PROCEDURE W/PT AND SPOUSE. DR FUENTESLY INCREASED DOSE OF PERCOCET TO ATTEMPT BETTER PAIN MANAGEMENT. PT MEDICATED ONCE DURING SHIFT FOR NAUSEA. HAS BEEN TOLERATING REGULAR DIET. STAFF AND DR CASTELLANOS HAVE ENCOURAGED MOBILIZATION W/PT AND SPOUSE T/O SHIFT. PLAN TO DC HOME TOMORROW. CALL LIGHT IN REACH.
[2024-08-09 19:58] VITALS: BP 106/44
[2024-08-09] MEDS ORDERED: Triamcinolone Acet 0.1% Cream 15 gm TOP SCH (20:15)
[2024-08-09] MEDS ORDERED: DiphenhydrAMINE HCL 25 MG Cap PO PRN (20:15)
[2024-08-09] MEDS ORDERED: DiphenhydrAMINE HCl 50 MG/ML 1ML Vial IV PRN (20:15)
--- NOTE | 2024-08-09 20:16 | NUR ---
PT C/O GENERALIZED ITCHING, HAS SMALL RAISED RASH ON LEFT ABD. DR FUENTESLY NOTIFIED, NEW ORDER FOR BENADRYL AND CREAM REC.
--- NOTE | 2024-08-09 23:07 | NUR ---
BLEEDING: PT REP HAVING SOME VAGINAL BLEEDING W/CLEAR MUCOUS AND SMALL CLOT. PT REP HER PERIOD IS EXPECTED TO START IN THE NEXT 1-4 DAYS. PT EDUCATED TO MONITOR BLEEDING AND NOTIFY STAFF IF BLEEDING INC OR MORE CLOTS APPEAR. PT ALSO EDCUATED TO ONLY USE PADS.
[2024-08-10 03:50] VITALS: BP 117/61
--- NOTE | 2024-08-10 05:47 | NUR ---
POD 3 S/P ILENE. PT VSS T/O NIGHT. INCISIONS CDI, ABD SOFT TO PALP. PT HAD LIGHT VAGINAL BLEEDING, APPEARS TO BE MORE SPOTTING THIS AM. PT STATES UNSURE IF R/T REGUALR PERIOD OR SURGERY. PAIN MGD PER EMAR AND W/KPAD FOR COMFORT. BENADRYL GIVEN FOR ITCHING. PT ZAHIRA REG PO, IS VOIDING URINE W/O DIFFICULTY, REP +FLATUS, NO BM YET, REP 1 EPISODE OF MILD NAUSEA, RESOLVED W/CRACKERS. PT UP OOB TO BATHROOM W/SPOUSE ASSIST, NEEDING ENCOURAGEMENT TO MOBILIZE. SPOUSE ATTINTIVE IN ROOM. PT ANXIOUS AT TIMES, SUPPORT AND EDUCATION CONT PRN.
[2024-08-10 07:20] VITALS: BP 119/56
--- NOTE | 2024-08-10 09:23 | NUR ---
PT C/O "FEELING ICKY" NAUSEATED. PT ALSO C/O BEING ITCHY. OBVIOUS REDNESS TO FACE, ITCHING NOSE. HIVES PRESENT ON TRUNK AND BUE, PO BENADRYL GIVEN BY PRIMARY RN (SEE EMAR) PT STATES THAT THIS BEGAN LAST NIGHT AFTER PAIN MEDICATION WAS INCREASED. SPOKE WITH VIVIEN LUQUE PERCOCET, START PT ON HYDROCODONE 5/325MG 1 TAB PO Q6 PRN PAIN
[2024-08-10] MEDS ORDERED: HYDROcodone 5-APAP 325 TAB PO PRN (09:35)
[2024-08-10] MEDS ORDERED: MethylPREDNISolone Sod Succ 125 MG Vial IV ONE (09:45)
--- NOTE | 2024-08-10 09:45 | NUR ---
MORNING NOTE THIS RN ASSUMED CARE AT APPROX 0715. PATIENT ALERT AND ORIENTED X4. COMMUNICATES NEEDS EFFECTIVELY. EXPERIENCES EPISODES OF ANXIETY - MANAGING WITH THERAPUETIC DISCUSSION. VSS. POD 3 LAP LYSIS OF ADHESIONS - X2 LAP SITES WITH WOUND GLUE C/D/I. RECEIVING PO PERCOCET FOR PAIN MANAGEMENT - RED RAISED RASH TO ABD (MOSTLY L SIDE). REPORTS ITCHING - PO BENADRYL ADMINISTERED PER EMAR WITH LITTLE RELIEF. CREW PERSON CONTACTED MD WONDERLY (SEE NOTE) - SWITCHED TO PO NORCO FOR PAIN. MD AT BEDSIDE - RECEIVED ORDER FOR ONE TIME DOSE OF IV SOLUMEDROL. WILL ADMINISTER PER EMAR. PATIENT TOLERATING PO INTAKE - DENIES N/V. REPORTS FLATULENCE - DENIES BM. VOIDING. AMBULATING WITH SBA. AT BEDSIDE. CALL LIGHT IN REACH.
[2024-08-10 14:28] VITALS: BP 122/69
--- NOTE | 2024-08-10 16:47 | NUR ---
SHIFT SUMMARY NO ACUTE CHANGES SINCE MORNING NOTE. PATIENT REMAINS ALERT AND ORIENTED X4. SPOUSE AT BEDSIDE ASSISTING WITH CARE. POD 3 LAP LYSIS OF ADHESIONS. VSS. AFEBRILE. SBP 110s-120s. MAP >65. DENIES CHEST PAIN, PRESSURE. ON ROOM AIR, SATs >90%. DENIES SOB. X2 LAP SITES WITH WOUND GLUE C/D/I. MANAGING PAIN PER EMAR WITH PO NORCO. REDNESS TO ABD FROM REACTION TO PERCOCET (SEE PREVIOUS NOTES) IMPROVING. PATIENT SHOWERED TODAY. AMBULATING WITH SBA. VOIDING. TOLERATING PO INTAKE. REPORTS FLATULENCE - NO BM TODAY. CALL LIGHT IN REACH.
[2024-08-10 19:23] VITALS: BP 126/65
[2024-08-10 22:43] LABS: ANTI-NUCLEAR AB ANA,IGG ELISA Detected (None Detected)
[2024-08-11 03:40] VITALS: BP 123/72
--- NOTE | 2024-08-11 04:17 | NUR ---
SHIFT SUMMARY NO ACUTE CHANGES THIS SHIFT. PT REPORTS 01/17 ABD PAIN WITH AND WITHOUT NORCO + NAPROXEN PAIN MEDICATION. ENCOURAGING K PAD TO ABD. NAUSEA X1, BUT NO EMESIS. ZAHIRA REG DIET. AMBULATING TO RESTROOM, VOIDING WITHOUT DIFFICULTY AND PASSING FLATUS. LAP SITES X2 TO ABD WITH SMALL AMOUNT OF REDNESS OUTLINED, OTHERWISE CDI. DENIES VAGINAL BLEEDING. VSS. AT BEDSIDE FOR SUPPORT. CALL LIGHT WITHIN REACH.
[2024-08-11 07:13] VITALS: BP 141/73
--- NOTE | 2024-08-11 08:45 | NUR ---
MORNING NOTE THIS RN ASSUMED CARE AT APPROX 0715. PATIENT ALERT AND ORIENTED X4. COMMUNICATES NEEDS EFFECTIVELY. VSS. POD 4 LAP LYSIS OF ADHESIONS. X2 LAP SITES WITH MILD REDNESS AROUND INCISION SITES - SITES OUTLINED BY NOC RN, NO GROWTH IN REDNESS THIS MORNING. OTHERWISE SITES C/D/I. REPORTING 7/10 PAIN - MEDICATED PER EMAR WITH REPORTED RELIEF. RASH TO ABD IMPROVED - DENIES ITCHING. DENIES N/V - TOLERATING PO INTAKE. REPORTS FLATULENCE - NO BM. ENCOURAGING MOBILITY AND WALKING TODAY. SPOUSE AT BEDSIDE. CALL LIGHT IN REACH.
[2024-08-11] MEDS ORDERED: MethylPREDNISolone Sod Succ 125 MG Vial IV ONE (10:00)
[2024-08-11] MEDS ORDERED: BENADRYL25 MG PO (10:31)
[2024-08-11] MEDS ORDERED: Norco 5-325 Ta1 EACH PO (10:32)
--- NOTE | 2024-08-11 11:35 | NUR ---
DISCHARGE NOTE NO ACUTE CHANGES SINCE MORNING NOTE. WONDERLY ROUNDING THIS MORNING - DC HOME ORDERED FOLLOWING SECOND DOSE OF IV SOLUMEDROL. DOSE ADMINISTERED PER EMAR. IV REMOVED. DC EDUCATION PROVIDED - BOTH PATIENT AND HER STATE UNDERSTANDING. PAIN MANAGED WITH PRESCRIBED THERAPY - ABD BINDER PROVIDED. PERSONAL BELONGINGS WITH PATIENT. PATIENT TRANSFERRED TO PERSONAL VEHICLE VIA AT APPROX 1130.
[2024-08-12 04:32] LABS: ANTINUCLEAR AB (ANA),HEP-2,IGG <1:80 (<1:80)
[2024-08-13 09:41] LABS: 25-HYDROXYVITAMIN D2 <1.0 ng/mL; 25-HYDROXYVITAMIN D2 D3 TOTAL 15.1 ng/mL (30.0-80.0); 25-HYDROXYVITAMIN D3 15.1 ng/mL
== END 2024-08-11 11:35 | disposition home or self-care (01) ==
LOC: ER 15:44 → SURS 15:45
PROVIDERS: Student in an Organized Health Care Education/Training Program; ADMIT Obstetrics & Gynecology
DX: N83.291 Other ovarian cyst, right side (principal); N83.8 Other noninflammatory disorders of ovary, fallopian tube and broad ligament; N73.6 Female pelvic peritoneal adhesions (postinfective); N80.00 Endometriosis of the uterus, unspecified; L27.0 Generalized skin eruption due to drugs and medicaments taken internally; T39.1X5A Adverse effect of 4-Aminophenol derivatives, initial encounter; Z88.8 Allergy status to other drugs, medicaments and biological substances; Z79.899 Other long term (current) drug therapy
CPT/HCPCS: 36415; 74177; 76830; 76857; 80048; 80053; 81001; 82306; 82607; 82728; 82746; 83540; 83550; 84703; 85025; 85651; 86038; 86039; 86141; 86430; 87086; 94762; 96365; 96374-59; 96375; 96375-59; 96376; 99285-25; A9270; G0378; J0690; J0696; J1100; J1171; J1200; J2270; J2310; J2371; J2405; J2704; J2919; J3010; J7030; J7120; Q9967